=== PATIENT | female | born 1955 | race Caucasian/White ===

== ENCOUNTER 2023-02-22 11:29 | Observation (INO) ==
--- NOTE | 2023-01-25 10:15 | PAT Medication Instructions ---
Medication Instructions Date of Service January 25, 2023 Home Medications amlodipine 2.5 mg tablet 2.5 mg PO QPM ascorbic acid (vitamin C) 500 mg tablet (Vitamin C) 500 mg PO QPM calcium 600 mg capsule 600 mg PO QAM cholecalciferol (vitamin D3) 125 mcg (5,000 unit) tablet (Vitamin D3) 125 mcg PO QPM diazepam 10 mg tablet 10 mg PO TID PRN Anxiety eplerenone 50 mg tablet 50 mg PO BID levothyroxine 100 mcg tablet 100 mcg PO QAM multivitamin 1 tab PO QAM polyethylene glycol 3350 17 gram oral powder packet 17 g PO BID rosuvastatin 20 mg tablet 20 mg PO QPM zinc 25 mg tablet 25 mg PO QAM DO NOT take the morning of surgery calcium 600 mg capsule 600 mg PO QAM eplerenone 50 mg tablet 50 mg PO BID multivitamin 1 tab PO QAM polyethylene glycol 3350 17 gram oral powder packet 17 g PO BID zinc 25 mg tablet 25 mg PO QAM Take morning of surgery With a small sip of water, OTHERWISE NOTHING TO EAT OR DRINK AFTER MIDNIGHT: diazepam 10 mg tablet 10 mg PO TID PRN Anxiety (if needed) levothyroxine 100 mcg tablet 100 mcg PO QAM Take evening before surgery amlodipine 2.5 mg tablet 2.5 mg PO QPM ascorbic acid (vitamin C) 500 mg tablet (Vitamin C) 500 mg PO QPM cholecalciferol (vitamin D3) 125 mcg (5,000 unit) tablet (Vitamin D3) 125 mcg PO QPM diazepam 10 mg tablet 10 mg PO TID PRN Anxiety (if needed) eplerenone 50 mg tablet 50 mg PO BID polyethylene glycol 3350 17 gram oral powder packet 17 g PO BID rosuvastatin 20 mg tablet 20 mg PO QPM Other Notes If you have any questions please call us at [phone] or [phone] or [phone] or [phone]
--- NOTE | 2023-01-30 14:26 | Anesthesiology Consultation ---
Date of Service January 30, 2023 Assessment & Plan (1) Encounter for pre-operative examination: - Infectious disease screening: Per assessment on 01/30/23: No known infectious disease contacts or current infectious disease symptoms. No noted recent Covid positive test result. Patient was Covid positive 01/05/23 (home test)- body aches, fever, sinus congestion, fatigue > resolved except residual fatigue. Pt can proceed as scheduled without additional preop Covid testing or additional Covid contact precautions per protocol. - Outpatient joint assessment: Pt currently scheduled for inpatient pathway. If surgeon requests review for outpatient joint pathway, patient is not recommended candidate for outpatient joint program from anesthesia standpoint based on current available information. - [facility] ER visit (01/19/23): "Pt present c/o near syncopal episode event last night. Pt states that she had a lot of gas yesterday with some stomach cramping.. She checked her BP and it was 120 systolic.. She bumped her arm up and down in the air, took took a deep breath and placed her feet flat on the floor before checking in again. This time it was 69 over 30 days. Her HR was 112 at that time as well.. Pt with episode of dizziness, low BP yesterday. Recent covidhad near syncopal event during height of illness leading to head strike. Exam benign. Labs reassuring. CT head normal." Patient discharged in stable condition and advised to follow-up with primary care physician. - Optimization: Preop labs 01/30/23 reveal low WBC at 2.44. We do have comparison labs from [facility] ER visit noting low WBC at 3.58. Note written to PCP regarding recent ER visit + low WBC- Awaiting response (Dr. Byrnes). Chart Review Chart Review: Patient seen in Pre Admission Testing Teaching & Discussion Pre-Anesthesia Teaching/Discussion Notes: Instructed NPO after midnight before surgery,except medications with 15 cc of water. Medication instructions provided according to the PAT guidelines. History Surgery Operation Date: 02/22/23 08:40 Proposed Procedures p Left Reverse Total Shoulder Arthroplasty - Jamin Benito DO Height/Weight Height: 5 ft 6 in Weight: 71.2 kg Allergies Allergy/AdvReac Type Severity Reaction Status Date / Time latex Allergy Hives Verified 01/24/23 14:33 -cyclins AdvReac Systemic Uncoded 01/30/23 14:38 yeast infection Medications Home Medications Medication Instructions Recorded Confirmed Last Taken amlodipine 2.5 mg tablet 2.5 mg PO QPM 01/24/23 01/24/23 Unknown ascorbic acid (vitamin C) 500 mg 500 mg PO QPM 01/24/23 01/24/23 Unknown tablet (Vitamin C) calcium 600 mg capsule 600 mg PO QAM 01/24/23 01/24/23 Unknown cholecalciferol (vitamin D3) 125 125 mcg PO QPM 01/24/23 01/24/23 Unknown mcg (5,000 unit) tablet (Vitamin D3) diazepam 10 mg tablet 10 mg PO TID PRN Anxiety 01/24/23 01/24/23 Unknown eplerenone 50 mg tablet 50 mg PO BID 01/24/23 01/24/23 Unknown levothyroxine 100 mcg tablet 100 mcg PO QAM 01/24/23 01/24/23 Unknown multivitamin 1 tab PO QAM 01/24/23 01/24/23 Unknown polyethylene glycol 3350 17 gram 17 g PO BID 01/24/23 01/24/23 Unknown oral powder packet rosuvastatin 20 mg tablet 20 mg PO QPM 01/24/23 01/24/23 Unknown zinc 25 mg tablet 25 mg PO QAM 01/24/23 01/24/23 Unknown Past Medical History Medical History History of COVID-19 01/05/23 (home test)- body aches, fever, sinus congestion, fatigue > resolved except residual fatigue Episode of syncope 01/2023- [facility] ER visit for near syncopal episode, per patient told this was r/t dehydration (reports workup in ER unremarkable) > no issues since Hyperaldosteronism 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 Osteoarthritis TMJ (temporomandibular joint disorder) hx locking Bruxism Hypothyroidism Anxiety and depression History of TIA (transient ischemic attack) 10+ years ago HLD (hyperlipidemia) HTN (hypertension) Sleep apnea CPAP (compliant) Exercise / Class Metabolic Activity II 4-5 Yardwork/Stairs/Walk up hill (one FS (no CP, no SOB)) Past Family History Family History Other No family history of adverse response to anesthesia Past Surgical History Surgical History PONV (postoperative nausea and vomiting) History of breast augmentation History of cholecystectomy History of tonsillectomy History of hysterectomy History of colonoscopy Past Anesthesia History No Hx of Anesthesia Complications and No Family Hx of Anesthesia Complications History of PONV No Hx of Motion Sickness and History of PONV Social History Smoking Status: Never smoker Do You Dip or Chew Tobacco: No Hx Alcohol Use: Yes alcohol intake frequency: a few times a month Hx Substance Use: No substance use type: does not use Review of Systems Patient denies chest pain, shortness of breath, dyspnea on exertion, fever, chills, cough, wheezing, palpitations. Physical Exam Vital Signs VITALS BP P TEMP SP02 RESP PHYSICAL Full cervical extension range of motion. Full TMJ range of motion. TMD __ finger breaths Mallampati Score ___ Dentition: intact, + caps Lungs: clear throughout to auscultation Cardiac: regular rate and rhythm, no murmurs noted Spine: normal Carotid arteries: negative bruit Extremities: no LE edema Lab Results Anesthesia Preop Results Results Anesthesia Widget: WBC 2.44 K/ul (4.8-10.8) L 01/30/23 Hgb 13.4 g/dl (12.0-16.0) 01/30/23 Hct 38.5 % (37.0-47.0) 01/30/23 Plt 112 K/uL (130-400) L 01/30/23 PT 10.6 Seconds (9.0-12.0) 01/30/23 PTT 30 Seconds (21-31) 01/30/23 INR 1.0 (0.9-1.1) 01/30/23 Blood Type A Positive 01/30/23 Antibody Screen NEGATIVE 01/30/23 Testing Laboratory Results 01/19/23 SODIUM 136 POTASSIUM 3.8 CHLORIDE 103 CO2 27.0 BUN 12.0 CREATININE 0.58 GLUCOSE 102 UA negative Electrocardiogram Date: 01/19/23 SR at 72bpm. "Normal ECG" Chest X-Ray Date: 01/30/23 FINDINGS: The lungs are clear. Cardiac silhouette is normal in size. No pleural effusions. No pneumothorax. IMPRESSION: No acute process.
[~2023-02-22 11:29] MED LIST: ACETAMINOPHEN 500 MG TAB PO SCH; BUPIVACAINE 0.5 % 5 MG/1 ML PF 10ML VIAL ONE; FAMOTIDINE 20 MG TAB PO SCH; GABAPENTIN 600 MG DOSE PO SCH; LR 15ML/HR IV SCH; LR 60ML/HR IV SCH; ROPIV 0.5% 246mg, Ketorolac 30mg, EPINEPHrine 0.5mg in NSS INFIL SCH; TRANEXAMIC ACID 1,000 MG **IV Intra-op IV SCH; TRANEXAMIC ACID 1,000 MG **IV Pre-op IV SCH; ceFAZolin 2000MG 2,000 MG/15 ML SYR IV SCH; dexAMETHasone**PF** 10 MG/ML VIAL IV SCH
[2023-02-22] MEDS ORDERED: SCOPOLAMINE 1 MG TDSY TD ONE ×2 (11:52→12:02)
--- NOTE | 2023-02-22 11:54 | History & Physical Bridge Note ---
Date of Service February 22, 2023 History & Physical Bridge Note I have examined the patient, reviewed the History & Physical and in the interval since the performance of the History & Physical I have noted the following changes of clinical significance: no changes noted
[2023-02-22] MEDS ORDERED: PROPOFOL IV EMULSION 10 MG/ML 20 ML VIAL IV ONE (12:01)
[2023-02-22] MEDS ORDERED: ONDANSETRON INJ 2 MG/ML 2 ML VIAL ONE (12:01)
[2023-02-22] MEDS ORDERED: DEXAMETHASONE SOD INJ 4 MG/ML VIAL ONE (12:01)
[2023-02-22] MEDS ORDERED: LIDOCAINE 2% 2 ML VIAL/AMP(20MG/ML) INFIL ONE (12:01)
[2023-02-22] MEDS ORDERED: fentaNYL citrate PF 100 MCG/2 ML VIAL ONE (12:02)
[2023-02-22] MEDS ORDERED: MIDAZOLAM HCL 1 MG/ML 2ML VIAL ONE ×2 (12:02→12:34)
[2023-02-22] MEDS ORDERED: PROMETHAZINE HCL 12.5 MG in SODIUM CHLORIDE 0.9% 50 ML IV PRN (12:19)
[2023-02-22] MEDS ORDERED: ePHEDrine sulfate 50 MG/ML AMP IV PRN (12:19)
[2023-02-22] MEDS ORDERED: ATROPINE SULFATE 0.1 MG/ML 10ML SYR IV PRN (12:19)
[2023-02-22] MEDS ORDERED: fentaNYL citrate PF 100 MCG/2 ML VIAL IV PRN (12:19)
[2023-02-22] MEDS ORDERED: ORTHO JOINT ANESTHETIC ONE (12:19)
[2023-02-22] MEDS ORDERED: PHENYLEPHRINE HCL 10 MG/ML VIAL ONE (13:10)
[2023-02-22] MEDS ORDERED: ePHEDrine sulfate 50 MG/5 ML SYR ONE (13:21)
[2023-02-22] MEDS ORDERED: PHENYLEPHRINE 100MCG/ML 10ML SYR IV ONE (13:57)
[2023-02-22] MEDS ORDERED: SUGAMMADEX SODIUM 200 MG/2 ML VIAL IV ONE (14:01)
--- NOTE | 2023-02-22 14:19 | Operative Report ---
PG Post Operative Report Pre & Post Diagnosis Operation Date: 02/22/23 13:40 Pre-Op Diagnosis: Osteoarthritis of Left Shoulder with tendinopathy long head of biceps tendon Post-Op Diagnosis: Osteoarthritis of Left Shoulder with tendinopathy long head of the biceps tendon I identified the patient and participated in the time-out.: Yes Procedure Operation Date: 02/22/23 13:40 Actual Procedures p Left Anatomic Total Shoulder Arthroplasty(Left) with open biceps tenodesis as a distinct and separate procedure (modifier 59)- Jamin Benito DO Surgeon Jamin Benito DO Bowl Attendant Diego Messina PA-C Estimated Blood Loss 150 Findings Consistent with Post-Op Diagnosis Specimens Left humeral head Description of Procedure A CPT code modifier 59: The long head of the biceps tendon was enlarged and inflamed consistent with tendinopathy. A tenodesis was opted. This was a separate and distinct portion of the procedure. For these reasons, a CPT code modifier 59 will be added to this case. Implants used: I used a [employer] Comprehensive total shoulder arthroplasty system with a size 12 press fit micro humeral stem, a size 46 x 21 eccentric humeral head, and a size 3 glenoid with a trabecular metal peg. The glenoid was cemented in place with Palacos G cement. Anant arrived at [facility] for the above procedure. She was seen in the preoperative holding area and the operative extremity was identified and signed. She was given a preoperative antibiotic, TXA, and an interscalene nerve block. She was taken back to the operating room, laid on table in supine position, and put under general anesthesia. She was then put into the beachchair position. The shoulder was then prepped and draped in sterile fashion. A timeout was done and the patient and the operative extremity was properly identified. A deltopectoral approach was used. Dissection was taken down through the fascia and the deltoid was retracted laterally and the conjoined tendon was retracted medially. The anterior shoulder was exposed. The biceps groove was opened up and the biceps tendon was examined extensively. The biceps tendon demonstrated enlargement and inflammatory changes consistent with longstanding inflammation in the context of osteoarthritis. The long head of the biceps tendon was then tenodesed to the upper border of the pectoralis major. This was a separate and distinct portion of the procedure. The subscapularis was then released off the lesser tuberosity with a centimeter of cuff tissue remaining. The inferior capsule was released and the humeral head was dislocated. The rotator cuff was inspected and intact. A canal finding reamer was sent down the center of the humeral canal. Sequential reaming up to a size 12 reamer was done. Offset reamer a proximal humeral resection guide was placed. The proximal humerus was resected at 135 of inclination and 30 of retroversion. Inferior osteophytes were then removed and the glenoid was exposed. Time was spent doing an appropriate labral release. The glenoid measured to be a size 3. A 3.2 mm Steinmann pin was placed in the central hole of the glenoid vault pin guide. The glenoid was then reamed with a propeller reamer. The central post cutter was then used to prepare for the central boss. The cannulated peripheral peg drill guide was then placed and 3 peg holes were drilled. The final size 3 glenoid was then cemented in place with Palacos G cement. Surrounding soft tissues were then injected with 100 cc of an orthopedic pain control cocktail. Once cement had dried the proximal humerus was once again exposed. Sequential broaching of the humerus up to a size 12 broach was done. Off that broach a size 46 x 21 eccentric humeral head was trialed. The shoulder was then reduced, brought through a full range of motion, and felt to be stable. The shoulder was then dislocated and the broach was removed. The final size 12 micro humeral stem implant was then impacted into place. A size 46 x 21 eccentric humeral head was then impacted onto the humeral stem. The shoulder was then reduced and once again brought through a full range of motion and felt to be stable. The subscapularis was then tenodesed back to the lesser tuberosity with transosseous FiberWire sutures and side to side sutures with the arm in 45 of external rotation. 2 sutures were placed in the lateral rotator interval. A dilute betadyne lavage was then done for 3 minutes. The joint was then irrigated with normal saline solution. Hemostasis was obtained. The interval was closed with 2-0 Vicryl suture. The skin was closed with 2-0 Vicryl and mariluz. A Silverlon dressing was placed and the arm was rested in a regular arm sling. She was then extubated and transferred to a hospital bed. She was taken to the postanesthesia care unit in stable condition. She tolerated the procedure well. Diego Messina PA-C, was present for the entire procedure. He was critical for patient positioning, prepping, draping, retraction exposure, wound closure and application of sterile dressing. I attest to the content of the Intraoperative Record and any orders documented therein. Any exceptions are noted below.
--- NOTE | 2023-02-22 15:31 | Anesthesiology Progress Note ---
Date of Service February 22, 2023 Anesthesia Post Procedure Vital Signs Vital Signs: Temp Pulse Pulse Resp BP Pulse Ox O2 Del Method 02/22/23 15:25 97.3 F L 89 20 164/92 H 94 Room Air 02/22/23 15:15 89 20 163/94 H 95 Room Air 02/22/23 15:05 90 18 165/97 H 95 Room Air 02/22/23 14:55 91 H 18 165/93 H 100 Oxymask 02/22/23 14:45 94 H 19 175/96 H 100 Oxymask 02/22/23 14:37 97.9 F 105 H 22 152/97 H 97 Oxymask 02/22/23 11:51 97.7 F 78 20 166/106 H 98 Room Air O2 Flow Rate 02/22/23 15:25 02/22/23 15:15 02/22/23 15:05 02/22/23 14:55 3 02/22/23 14:45 6 02/22/23 14:37 6 02/22/23 11:51 Pain Intensity Head: Pain Intensity: 2 Transfer of Care Handoff Completed per policy Notes Mental Status: alert / awake / arousable and participated in evaluation Patient Amnestic to Procedure: Yes Nausea / Vomiting: adequately controlled Pain: adequately controlled Airway Patency, RR, SpO2: stable & adequate BP & HR: stable & adequate Hydration State: stable & adequate Anesthetic Complications: no major complications apparent and Pt Satisfied with anesthetic care
--- NOTE | 2023-02-22 15:57 | XRay Report ---
LEFT SHOULDER 2 VIEWS CLINICAL HISTORY: Postoperative examination. FINDINGS: 2 portable views of the left shoulder are compared to study dated 01/30/2023. The skeletal structures are osteopenic. A left shoulder arthroplasty is in near anatomic alignment. No fracture is seen. The acromioclavicular joint is maintained. Skin clips, subcutaneous gas, and soft tissue swell ing overlying the left shoulder are expected postsurgical findings. There is atelectasis at the left lung base. IMPRESSION: Expected postoperative findings status post left shoulder arthroplasty. No acute fracture is seen. Electronically signed by: Akira Estrada M.D. 02/22/2023 3:55 PM
[2023-02-22] MEDS ORDERED: CHECK SCOPOLAMINE PATCH PLACEMENT SCH (16:00)
[2023-02-22] MEDS ORDERED: NALOXONE HCL 0.4 MG/1 ML VIAL/CARP IV PRN (16:37)
[2023-02-22] MEDS ORDERED: diazePAM 5 MG TABLET PO PRN (16:37)
[2023-02-22] MEDS ORDERED: ONDANSETRON INJ 2 MG/ML 2 ML VIAL IV PRN (16:37)
[2023-02-22] MEDS ORDERED: oxyCODONE HCL IR 5 MG TAB (IMMEDIATE RELEASE) PO PRN (16:37)
[2023-02-22] MEDS ORDERED: METOCLOPRAMIDE HCL INJ 5 MG/ML 2 ML VIAL IV PRN (16:37)
[2023-02-22] MEDS ORDERED: HYDROmorphone INJ 0.5 MG/0.5 ML SYR IV PRN (16:37)
[2023-02-22] MEDS ORDERED: MAGNESIUM HYDROXIDE SUSP 30 ML UDC PO PRN (16:37)
[2023-02-22] MEDS ORDERED: bisacodyL 10 MG SUPP PR PRN (16:37)
[2023-02-22] MEDS: KETOROLAC 30 MG/ML VIAL IV SCH (17:22)
[2023-02-22] MEDS: SODIUM CHLORIDE 0.9% 1,000 ML IV SCH (17:22)
[2023-02-22] MEDS ORDERED: SENNA 8.6 MG TAB PO SCH (21:00)
[2023-02-22] MEDS ORDERED: amLODIPine BESYLATE 5 MG TAB PO SCH (21:00)
[2023-02-22] MEDS ORDERED: ROSUVASTATIN CALCIUM 20 MG TAB PO SCH (21:00)
[2023-02-22] MEDS: ceFAZolin 2000MG 2,000 MG/15 ML SYR IV SCH (21:14)
[2023-02-22] MEDS: DOCUSATE SODIUM 100 MG CAP PO SCH (21:17)
[2023-02-22] MEDS: ACETAMINOPHEN 500 MG TAB PO SCH (21:18)
[2023-02-23] MEDS: KETOROLAC 30 MG/ML VIAL IV SCH ×2 (00:02→05:03)
[2023-02-23] MEDS: SODIUM CHLORIDE 0.9% 1,000 ML IV SCH (03:06)
[2023-02-23] MEDS: ceFAZolin 2000MG 2,000 MG/15 ML SYR IV SCH (03:07)
[2023-02-23] MEDS: ACETAMINOPHEN 500 MG TAB PO SCH (03:27)
[2023-02-23] MEDS ORDERED: LEVOTHYROXINE SODIUM 100 MCG TABLET PO SCH (06:30)
[2023-02-23] MEDS ORDERED: dexAMETHasone 4 MG TAB PO SCH (08:00)
--- NOTE | 2023-02-23 08:06 | Orthopedic Progress Note ---
Date of Service February 23, 2023 Assessment & Plan (1) Status post replacement of left shoulder joint: Overall she is doing very well. She is not having much pain in the left shoulder. She will be seen by physical therapy today for ambulation and range of motion exercises. She can be discharged home later today. She will follow- up with orthopedics in 2 weeks. Dwight Ny was seen and examined at bedside this morning. Overall she is doing well. She is not having any pain in the left shoulder. She was able to get some sleep last night. She has no complaints.. Review of Systems All systems reviewed & are unremarkable except as noted in HPI & below. Physical Exam On physical examination of the left shoulder, the dressing is clean and dry. Her arm is in the sling. She has active motion of her hand and wrist.. Results & Data Results & Data Laboratory Results . Diagnostic Findings X-rays of the left shoulder show advanced osteoarthritis with joint space narrowing, osteophyte formation, and [id number] articulation. PG Care Time/CCT Total # of Minutes Spent Total Time Spent with Patient: Total time spent is greater than 50% in coordination of care (as documented) at patient's floor/unit and/or counseling patient: Coding Level of Care Code 05263 Post Operative Follow-Up Diagnoses Status post replacement of left shoulder joint Z96.612
--- NOTE | 2023-02-23 08:08 | Discharge Summary ---
Date of Service February 23, 2023 Principal Diagnosis Same as "Discharge Diagnosis" noted below under Discharge Instructions. Discharge Exam On physical examination of the left shoulder, the dressing is clean and dry. Her arm is in the sling. She has active motion of her hand and wrist.. Discharge Data Procedures Performed Operation Date: 02/22/23 13:40 Actual Procedures p Left Anatomic Total Shoulder Arthroplasty(Left) - Jamin Benito DO Ordered Studies 02/22/23 05:00 US - OR guided needle placemen Routine Hospital Course (1) Status post replacement of left shoulder joint: On February 22, 2023 Anant arrived at [facility] and underwent a left shoulder replacement without complication. She had a general anesthetic and a left interscalene nerve block. Postoperatively she was placed in a sling and tr ansferred to the general orthopedic floors. Her hospital course was uneventful. On postop day #1, her vital signs were stable and her pain was well-controlled. She was able to participate well with physical therapy doing ambulation and range of motion exercises. She was then discharged home. She will follow-up with orthopedics in 2 weeks. PG Care Time/CCT Total # of Minutes Spent Total Time Spent with Patient: Total time spent is greater than 50% in coordination of care (as documented) at patient's floor/unit and/or counseling patient: Discharge Plan Discharge Items Patient Disposition: Home - Self-Care Reason For Visit: POST OP Discharge Diagnosis: Left shoulder replacement Activity: Per Instructions section Non-emergency contact: Surgeon Call non-emergency contact if: your wound has increased redness and your wound has increased drainage Follow-up/Referrals: Karsten Byrnes M.D. [Primary Care Provider] - Diet: Regular Addtl Attending Provider Instructions: Activity and Therapy Recommendations: * If you are using [facility] then therapy will be provided at your home until they feel you have accomplished all of your goals. * If you are using [facility] then Physical Therapy will be provided until they feel you are ready to start Outpatient Physical Therapy. * If you are not using home therapy then Outpatient Physical Therapy should start about 3-5 days from your day of surgery. Therapy will last about 8-12 weeks * Wear your sling for 3 weeks, unless otherwise instructed. You may remove your sling to shower and to dress, but otherwise, you should be in your sling at all times, including while sleeping * The shoulder replacement is very stable and you can use your hand while in the sling * You were shown a series of exercises in the hospital. Do these exercises daily including the exercises you were shown in physical therapy. Medications: * Narcotic You will likely be sent home from the hospital with a prescription for the narcotic pain medication that worked best throughout your stay. * Cefadroxil -take the antibiotic twice a day for 10 days to help prevent infection. * Other medications may be prescribed for specific circumstances. If you have any questions, please call the office at . * Resume previous home medications unless otherwise instructed Dressing Care: Leave the Silverlon dressing in place for 7 days. After 7 days you may remove the dressing. If the incision is not draining then you may leave the mariluz open to air. If there is a little bit of drainage or if the mariluz are getting stuck on your clothing then cover the incision with a dry dressing. The mariluz will be removed at your 2 week follow-up appointment. Showering: You may shower with the Silverlon dressing in place. Do not let the shower spray hit the dressing directly. Pat the Silverlon dressing dry. If the dressing becomes wet underneath, then simply remove the dressing. Keep the incision dry until you are 7 days out from the day of surgery. After 7 days you may remove the Silverlon dressing and shower with the mariluz exposed. Let soapy water run over the mariluz and pat them dry. Do not scrub or soak the incision. Things To Watch For: * Drainage from the incision site that occurs more than one week after your georges rgery. * Increased redness at the incision site. * Fever above 102 degrees Fahrenheit. * Unusual chest pain or shortness of breath. * Call [facility] at with any of the above problems Follow-Up Visit: Follow-up with Dr. Benito's PA (Jamin Schaefer) 2-3 weeks after your day of surgery. He will remove your mariluz and answer any questions. If you have any additional questions or concerns, Dr Benito is usually in the office at the same time and will be available An appointment was probably scheduled when you signed-up for surgery in the [facility]. If you have any questions call More detailed instructions as well as Frequently Asked Questions were provided in a folder by our office when you signed-up for surgery. Please review these instructions when you get home. If you have any further questions or concerns, please feel free to call the office at [phone] Pending Studies at Discharge: No Stand-Alone Forms: My [facility] Medications and DC Order Prescriptions: New cefadroxil 500 mg capsule 500 mg PO BID 10 Days Qty: 20 0RF tramadol 50 mg tablet 50 mg PO Q6H PRN (Reason: pain) Qty: 30 0RF Continued multivitamin Tablet 1 tab PO QAM calcium 600 mg Capsule 600 mg PO QAM polyethylene glycol 3350 17 gram Powder In Packet 17 g PO BID amlodipine 2.5 mg Tablet 2.5 mg PO QPM levothyroxine 100 mcg Tablet 100 mcg PO QAM ascorbic acid (vitamin C) [Vitamin C] 500 mg Tablet 500 mg PO QPM zinc 25 mg Tablet 25 mg PO QAM diazepam 10 mg Tablet 10 mg PO TID PRN (Reason: Anxiety) eplerenone 50 mg Tablet 50 mg PO BID rosuvastatin 20 mg Tablet 20 mg PO QPM cholecalciferol (vitamin D3) [Vitamin D3] 125 mcg (5,000 unit) Tablet 125 mcg PO QPM Discharge Orders: Discharge Order (Routine); Ordered 02/23/23 Ordered By: Jamin Benito Admission Data Admit Date/Time: 02/22/23 13:38 Attending Provider: Jamin Benito Admit Provider: Jamin Benito Primary Care Provider: Karsten Byrnes
[2023-02-23] MEDS: DOCUSATE SODIUM 100 MG CAP PO SCH (08:19)
[2023-02-23] MEDS ORDERED: MULTIVITAMIN TAB PO SCH (09:00)
== END 2023-02-23 10:52 | disposition home or self-care (01) ==
LOC: 3N 11:29 → ASU 11:29